=== PATIENT | male | born 1995 | race Caucasian/White ===

== ENCOUNTER → 2017-02-21 | Outpatient (CLI) | payer OTHER | LOC: RAD 09:15 | DX: M75.102 Unspecified rotator cuff tear or rupture of left shoulder, not specified as traumatic (principal); M75.52 Bursitis of left shoulder | CPT/HCPCS: 73040; 73222; A9577; Q9962 ==

== ENCOUNTER 2021-04-13 06:08 | Emergency (ER) | payer OTHER ==
[2021-04-13] MEDS ORDERED: IBUPROFEN600 MG PO (08:52)
[2021-04-13] MEDS ORDERED: CEPHALEXIN500 M1 PO (08:52)
== END 2021-04-13 09:00 | disposition home or self-care (01) ==
LOC: ER1 06:08
DX: S51.811A Laceration without foreign body of right forearm, initial encounter (principal); Z23 Encounter for immunization; J45.909 Unspecified asthma, uncomplicated; E03.9 Hypothyroidism, unspecified; F17.290 Nicotine dependence, other tobacco product, uncomplicated; Z88.8 Allergy status to other drugs, medicaments and biological substances; W26.8XXA Contact with other sharp object(s), not elsewhere classified, initial encounter
CPT/HCPCS: 12032; 73090; 90471; 90715; 99283

== ENCOUNTER 2021-04-27 11:25 | Emergency (ER) | payer SELFPAY ==
[~2021-04-27 11:25] MED LIST: CEPHALEXIN500 M1 PO; IBUPROFEN600 MG PO
== END 2021-04-27 11:58 | disposition home or self-care (01) ==
LOC: ER1 11:25
DX: S51.811D Laceration without foreign body of right forearm, subsequent encounter (principal); F17.290 Nicotine dependence, other tobacco product, uncomplicated
CPT/HCPCS: 99281

== ENCOUNTER 2021-05-02 20:15 | Emergency (ER) | payer SELFPAY | END 2021-05-02 21:25 | disposition home or self-care (01) | LOC: ER1 20:15 | DX: T81.33XA Disruption of traumatic injury wound repair, initial encounter (principal) | CPT/HCPCS: 99283 ==